=== PATIENT | male | born 1995 | race American Indian/Alaskan Native ===

== ENCOUNTER 2021-03-28 16:01 | Emergency (ER) | payer SELFPAY ==
[2021-03-28] MEDS ORDERED: ONDANSETRON 4 MG ODT TAB PO ONE (16:44)
[2021-03-28] MEDS ORDERED: oxyCODONE /ACETAMINOPHEN 5-325MG TAB PO ONE (16:44)
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
[2021-03-28] MEDS ORDERED: MORPHINE 4 MG/1 ML INJ IM ONE (18:05)
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
[2021-03-28] MEDS ORDERED: ETOMIDATE 20 MG/10 ML INJ IV ONE (19:46)
[2021-03-28] MEDS ORDERED: SODIUM CHLORIDE 0.9% 1000 ML 1,000 ML ONE (20:29)
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
--- NOTE | 2021-03-28 21:54 | XRay Report ---
LEFT HIP 2 VIEW(S) INDICATION / CLINICAL INFORMATION: Status post reduction COMPARISON: None available. FINDINGS: BONES / JOINT(S): Status post reduction of left hip joint. The left hip projects in expected position . Small ossific fragments are seen at the posterior acetabulum consistent with known fracture. SOFT TISSUES: No significant abnormality. ADDITIONAL FINDINGS: None. Signer Name: Alvin Grady MD Signed: 03/28/2021 9:49 PM Workstation Name: [id number]
[2021-03-29 00:23] VITALS: BP 169/93
== END 2021-03-29 00:29 | disposition home or self-care (01) ==
LOC: ED 16:01
DX: S73.005A Unspecified dislocation of left hip, initial encounter (principal); S32.492A Other specified fracture of left acetabulum, initial encounter for closed fracture; Z88.5 Allergy status to narcotic agent; Z79.899 Other long term (current) drug therapy; V89.2XXA Person injured in unspecified motor-vehicle accident, traffic, initial encounter; Y93.89 Activity, other specified; Y92.488 Other paved roadways as the place of occurrence of the external cause; Y99.8 Other external cause status
CPT/HCPCS: 27250; 72192; 73502; 96372; 99285; J2270; J3490; J7030; 96374; 96375; Q0162

== ENCOUNTER 2021-09-16 06:27 | Emergency (ER) | payer SELFPAY ==
[2021-09-16 06:34] VITALS: BP 136/86
--- NOTE | 2021-09-16 09:13 | XRay Report ---
CHEST 2 VIEWS INDICATION / CLINICAL INFORMATION: Shortness of breath. COMPARISON: None currently available. FINDINGS: SUPPORT DEVICES: None. HEART / MEDIASTINUM: The heart size and pulmonary vasculature are normal. LUNGS / PLEURA: No significant pulmonary or pleural abnormality. No pneumothorax. ADDITIONAL FINDINGS: No significant additional findings. IMPRESSION: No acute abnormality. Signer Name: Rodriguez Bach MD Signed: 09/16/2021 9:08 AM Workstation Name: [id number]
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
== END 2021-09-16 09:48 | disposition home or self-care (01) ==
LOC: ED 06:27
DX: M54.9 Dorsalgia, unspecified (principal)
CPT/HCPCS: 71046; 99283

== ENCOUNTER 2021-12-31 18:13 | Emergency (ER) | payer SELFPAY ==
[2021-12-31 18:24] VITALS: BP 174/98
== END 2022-01-01 01:55 | disposition left against medical advice (07) ==
LOC: ED 18:13
DX: R11.10 Vomiting, unspecified (principal); Z53.21 Procedure and treatment not carried out due to patient leaving prior to being seen by health care provider